=== PATIENT | female | born 1950 | race Caucasian/White ===

== ENCOUNTER 2017-07-27 00:01 | Outpatient (POV) | payer OTHER ==
[2015-02-07 00:38] VITALS: BMI 20.2
== END 2017-07-27 17:00 ==
LOC: OUTPT 00:01
PROVIDERS: ATTEND Otolaryngology
DX: H91.90 Unspecified hearing loss, unspecified ear (principal)

== ENCOUNTER 2017-09-07 13:42 | Outpatient (CLI) ==
[2015-02-07 00:38] VITALS: BMI 20.2
== END 2017-09-07 13:43 | disposition home or self-care (01) ==
LOC: LAB 13:42
PROVIDERS: ATTEND Emergency Medicine
DX: E78.5 Hyperlipidemia, unspecified (principal); I10 Essential (primary) hypertension; I25.10 Atherosclerotic heart disease of native coronary artery without angina pectoris
CPT/HCPCS: 36415; 80053; 80061; 84443; 85025

== ENCOUNTER 2018-09-20 12:36 | Outpatient (CLI) ==
[2015-02-07 00:38] VITALS: BMI 20.2
== END 2018-09-20 12:37 | disposition home or self-care (01) ==
LOC: CAR 12:36
PROVIDERS: ATTEND Nurse Practitioner Family
DX: R06.02 Shortness of breath (principal)
CPT/HCPCS: 94761

== ENCOUNTER 2018-10-19 11:04 | Outpatient (CLI) | payer OTHER ==
[2015-02-07 00:38] VITALS: BMI 20.2
== END 2018-10-19 11:05 | disposition home or self-care (01) ==
LOC: RHC-LAB 11:04 → FCC-LAB 11:05
PROVIDERS: ATTEND Nurse Practitioner Family
DX: R30.0 Dysuria (principal); M81.0 Age-related osteoporosis without current pathological fracture
CPT/HCPCS: 36415; 81001; 82306; 87086

== ENCOUNTER 2018-10-31 12:34 | Outpatient (CLI) ==
[2015-02-07 00:38] VITALS: BMI 20.2
[2018-10-31] MEDS ORDERED: ALBUTEROL 0.083% NEB NEB STA (12:53)
== END 2018-10-31 12:35 | disposition home or self-care (01) ==
LOC: CAR 12:34
PROVIDERS: ATTEND Nurse Practitioner Family
DX: R06.02 Shortness of breath (principal)